=== PATIENT | male | born 1965 | race Asian ===

== ENCOUNTER 2021-03-29 11:36 | Outpatient (CLI) | payer BC | END 2021-03-29 19:21 | disposition home or self-care (01) | LOC: RAD 11:36 | PROVIDERS: ATTEND Nurse Practitioner Family | DX: S39.012A Strain of muscle, fascia and tendon of lower back, initial encounter (principal) ==

== ENCOUNTER 2023-01-13 12:32 | Outpatient (CLI) | payer BC | END 2023-01-13 18:55 | disposition home or self-care (01) | LOC: RAD 12:32 | PROVIDERS: ATTEND Registered Nurse | DX: M25.512 Pain in left shoulder (principal); M54.2 Cervicalgia ==